=== PATIENT | female | born 1995 | race Caucasian/White ===

== ENCOUNTER 2019-02-21 17:30 | Emergency (ER) | payer OTHER ==
[~2019-02-21] VITALS: Ht 175.3 cm; Wt 62.6 kg
[~2019-02-21 17:30] MED LIST: AMBIEN CR6.25 MG/BL
[2019-02-21] MEDS ORDERED: DYANAVEL X2.5 MG/1 M (17:48)
[2019-02-21] MEDS ORDERED: TUSNEL LIQUID178 ML PO (19:24)
[2019-02-21] MEDS ORDERED: CLARITIN10 M1 PO (19:24)
[2019-02-21] MEDS ORDERED: DOLOGEN CAPLET1 EACH PO (19:24)
== END 2019-02-21 19:53 | disposition home or self-care (01) ==
LOC: ER 17:30
DX: B34.8 Other viral infections of unspecified site (principal); R05 Cough; R51 Headache; R09.81 Nasal congestion